=== PATIENT | female | born 1985 | race Caucasian/White ===

== ENCOUNTER 2016-07-05 15:02 | Inpatient (IN) | payer OTHER ==
[2016-07-05] VITALS (16 sets, daily range): BP systolic 110–124; BP diastolic 67–81
[~2016-07-05] VITALS: Ht 160 cm; Wt 64.5 kg
[~2016-07-05 15:02] MED LIST: AUGMENTIN875 MG PO; ENDOCET 5-3251 EACH PO; Motrin PO; NAPROSYN500 MG PO; PRENATAL VITAM1 EAC3 PO; SUBOXONE 8 M1 TABLET SL; Subutex PO; TRAMADOL HCL50 MG PO
[2016-07-05] MEDS ORDERED: ELITE OB DHA S1 EACH PO (15:48)
[2016-07-05] MEDS ORDERED: DIMENHYDRINATE50 MG PO (15:49)
[2016-07-05] MEDS ORDERED: Subutex PO (15:58)
[2016-07-05 16:59] LABS: EOSINOPHIL (%) 0.6 % (0-5); EOSINOPHIL COUNT 0.1 K/uL (0-0.3); HEMATOCRIT 34.1 % (36.0-46.0); IMMATURE GRANULOCYTE (%) 0.6 % (0.0-0.7); IMMATURE GRANULOCYTE COUNT 0.1 K/uL; LYMPHOCYTE COUNT 2.1 K/uL (1.0-2.8); MCH 27.5 PG (29.0-34.0); MCHC 32.6 G/DL (30.0-36.0); MCV 84.6 FL (83-99); MEAN PLAT.VOLUME 9.3 uM^3 (9.5-12.4); MONOCYTE (%) 8.2 % (3-12); NEUTROPHIL (%) 74.2 % (45-76); NEUTROPHIL COUNT 9.4 K/uL (1.8-6.4); PLATELET COUNT 200 K/uL (156-360); RBC DIS.WIDTH-CV 13.5 % (11.8-14.6); RBC DIS.WIDTH-SD 41.3 % (39-53); RED BLOOD COUNT 4.03 M/uL (3.80-5.20); WHITE BLOOD COUNT 12.6 K/uL (4.1-10.2)
[2016-07-05 17:32] LABS: AMPHETAMINES QUANT VALUE 0 NG/ML; BARBITUATES QUANT VALUE 0 NG/ML; BENZODIAZEPINES QUANT VALUE 0 NG/ML; BENZODIAZEPINES, URINE SCREEN Negative (200 ng/mL); MARIJUANA QUANT VALUE 0 NG/ML; OPIATES QUANTITATIVE VALUE 0 NG/ML; PHENCYCLIDINE QUANT VALUE 0 NG/ML
[2016-07-06] VITALS (8 sets, daily range): BP systolic 105–173; BP diastolic 60–81
[2016-07-06] MEDS ORDERED: IBUPROFEN800 MG PO (00:47)
[2016-07-07 07:05] VITALS: BP 127/77
[2016-07-07 14:24] VITALS: BP 130/76
[2016-07-07 22:54] VITALS: BP 114/73
[2016-07-08 07:44] VITALS: BP 122/78
[2016-07-08 15:36] VITALS: BP 152/74
== END 2016-07-08 16:41 | disposition home or self-care (01) | DRG 775 ==
LOC: LDRP-OP 15:02 → 2WEST 15:03 → LDRP-OP 08-10 15:44
PROVIDERS: Midwife
PROC: 10907ZC Drainage of Amniotic Fluid, Therapeutic from Products of Conception, Via Natural or Artificial Opening (ICD-10-PCS; 2016-07-05)
PROC: 3E0S3BZ Introduction of Anesthetic Agent into Epidural Space, Percutaneous Approach (ICD-10-PCS; 2016-07-05)
PROC: 0WQNXZZ Repair Female Perineum, External Approach (ICD-10-PCS; principal; 2016-07-06)
PROC: 10E0XZZ Delivery of Products of Conception, External Approach (ICD-10-PCS; principal; 2016-07-06)
DX: O99.824 Streptococcus B carrier state complicating childbirth (principal); F11.20 Opioid dependence, uncomplicated; O99.334 Smoking (tobacco) complicating childbirth; Z37.0 Single live birth; F17.210 Nicotine dependence, cigarettes, uncomplicated; Z3A.39 39 weeks gestation of pregnancy; O70.0 First degree perineal laceration during delivery; O99.324 Drug use complicating childbirth; F32.9 Major depressive disorder, single episode, unspecified; O99.344 Other mental disorders complicating childbirth
CPT/HCPCS: 85025; C1755; G0378; J0290; J0571; J3010; J7050; J7120

== ENCOUNTER 2016-10-28 05:39 | Day surgery (SDC) | payer OTHER ==
[~2016-10-28] VITALS: Ht 160 cm; Wt 62.7 kg
[~2016-10-28 05:39] MED LIST changes: +BUPRENORPHINE HC8 MG SL; +DIMENHYDRINATE50 MG PO; +ELITE OB DHA S1 EACH PO; +IBUPROFEN800 MG PO
[2016-10-28 06:24] VITALS: BP 120/82
[2016-10-28] MEDS ORDERED: NAPROXEN500 MG PO (06:59)
[2016-10-28 09:55] VITALS: BP 120/70
[2016-10-28 10:44] VITALS: BP 119/66
== END 2016-10-28 10:54 | disposition home or self-care (01) ==
LOC: SDC 05:39
PROC: 0U574ZZ Destruction of Bilateral Fallopian Tubes, Percutaneous Endoscopic Approach (ICD-10-PCS; principal; 2016-10-28)
DX: Z30.2 Encounter for sterilization (principal); Z81.1 Family history of alcohol abuse and dependence; Z83.3 Family history of diabetes mellitus; Z82.0 Family history of epilepsy and other diseases of the nervous system; Z82.49 Family history of ischemic heart disease and other diseases of the circulatory system; F17.210 Nicotine dependence, cigarettes, uncomplicated
CPT/HCPCS: J0131; J1100; J1170; J1885; J2250; J2405; J2710; J2765; J3010

== ENCOUNTER 2017-07-30 10:38 | Emergency (ER) | payer OTHER ==
[~2017-07-30] VITALS: Ht 160 cm; Wt 61.3 kg
[~2017-07-30 10:38] MED LIST changes: +NAPROXEN500 MG PO
[2017-07-30 12:37] LABS: HEMATOCRIT 43.9 % (36.0-46.0); HEMOGLOBIN 15.8 G/DL (11.9-15.5); MCH 32.6 PG (29.0-34.0); MCV 90.7 FL (83-99); PLATELET COUNT 127 K/uL (156-360); RBC DIS.WIDTH-CV 11.9 % (11.8-14.6); RBC DIS.WIDTH-SD 39.5 % (39-53); RED BLOOD COUNT 4.84 M/uL (3.80-5.20); WHITE BLOOD COUNT 3.7 K/uL (4.1-10.2)
[2017-07-30 13:02] LABS: QUANTITATIVE HCG < 4.0 MIU/ML
[2017-07-30 13:12] LABS: APPEARANCE SL.HAZY ((CLEAR)); BILIRUBIN SMALL; BLOOD LARGE; COLOR AMBER ((YELLOW)); GLUCOSE (STRIP) NEGATIVE; KETONES 5; LEUKOCYTES NEGATIVE; NITRITE NEGATIVE; PROTEIN (STRIP) 100; SPECIFIC GRAVITY 1.028 (1.000-1.030)
[2017-07-30 13:20] LABS: CHLORIDE 98 mEq/L (99-109); POTASSIUM 3.4 mEq/L (3.7-5.4); SODIUM 138 mEq/L (136-147)
[2017-07-30 13:22] LABS: GLUCOSE 125 mg/dL (70-99)
[2017-07-30 13:26] LABS: BACTERIA NONE SEEN /HPF; EPITHELIAL CELLS RARE /HPF; MUCUS 4+ /LPF; RED BLOOD CELLS 15-20 /HPF (0-5)
[2017-07-30 13:26] LABS: CREATININE 0.8 mg/dL (0.6-1.3); GFR ESTIMATE (CALCULATED) > 59 mL/min/
[2017-07-30 13:27] LABS: UREA NITROGEN (BUN) 4 mg/dL (9-23)
[2017-07-30] MEDS ORDERED: ZOFRAN ODT4 MG PO (15:54)
[2017-07-30 16:04] VITALS: BP 0/0
== END 2017-07-30 16:05 | disposition home or self-care (01) ==
LOC: EME 10:38
PROVIDERS: Physician Assistant
DX: N93.9 Abnormal uterine and vaginal bleeding, unspecified (principal); R11.2 Nausea with vomiting, unspecified; F17.200 Nicotine dependence, unspecified, uncomplicated; Z91.040 Latex allergy status
CPT/HCPCS: 76856; 80048; 81003; 84702; 85027; 99281; 99284